=== PATIENT | male | born 1955 | race Caucasian/White ===

== ENCOUNTER 2020-12-03 11:11 | Day surgery (SDC) | payer MEDICARE ==
[~2020-12-03] VITALS: Ht 175.3 cm; Wt 82.0 kg
[~2020-12-03 11:11] MED LIST: LEVO25TA4 PO; miralax
[2020-12-03] MEDS ORDERED: LIDOCAINE 1%, 20ML ONE (11:14)
[2020-12-03] MEDS ORDERED: LIDOCAINE 2%, 20ML SQ PRN (11:30)
[2020-12-03] MEDS ORDERED: PLEASE ENTER HEIGHT AND WEIGHT MC SCH ×2 (12:00)
== END 2020-12-03 12:34 | disposition home or self-care (01) ==
LOC: CACL 11:11
PROVIDERS: ATTEND Internal Medicine Cardiovascular Disease
DX: R00.2 Palpitations (principal); I48.0 Paroxysmal atrial fibrillation; I65.29 Occlusion and stenosis of unspecified carotid artery; Z79.82 Long term (current) use of aspirin; Z79.899 Other long term (current) drug therapy; Z87.891 Personal history of nicotine dependence; Z88.5 Allergy status to narcotic agent
CPT/HCPCS: 33285; C1764

== ENCOUNTER → 2021-02-14 | Outpatient (CLI) | payer MEDICARE | END | disposition home or self-care (01) | LOC: CVU 15:44 | PROVIDERS: ATTEND Internal Medicine Cardiovascular Disease | DX: I65.23 Occlusion and stenosis of bilateral carotid arteries (principal); E78.5 Hyperlipidemia, unspecified | CPT/HCPCS: 93880 ==